=== PATIENT | female | born 1950 | race Caucasian/White ===

== ENCOUNTER 2023-01-30 14:06 | Observation (INO) | payer MEDICARE ==
[~2023-01-30] VITALS: Ht 165.1 cm; Wt 57.0 kg
[2023-01-30] MEDS ORDERED: LEVOTHYROXINE125 MC9 PO (14:31)
[2023-01-30 14:39] LABS: BASOPHILS ABSOLUTE AUTO 0.02 K/mm3 (0.00-0.23); BASOPHILS PERCENT AUTO 0 % (0-2); EOSINOPHILS PERCENT AUTO 0 % (0-6); Hematocrit 37.8 % (33.0-51.0); Hemoglobin 12.4 g/dL (11.5-16.0); IMMATURE GRAN ABSOLUTE AUTO 0.05 K/mm3 (0.00-0.10); IMMATURE GRAN PERCENT AUTO 0 % (0-1); LYMPHOCYTES ABSOLUTE AUTO 3.67 K/mm3 (0.84-5.20); LYMPHOCYTES PERCENT AUTO 30 % (21-46); MONOCYTES ABSOLUTE AUTO 0.32 K/mm3 (0.16-1.47); MONOCYTES PERCENT AUTO 3 % (4-13); Mean Corpuscular HGB Conc 32.8 g/dL (31.5-36.5); Mean Corpuscular Volume 92 fL (80-100); Mean Platelet Volume 10.2 fL (9.1-12.4); NEUTROPHILS ABSOLUTE AUTO 8.03 K/mm3 (1.96-9.15); NEUTROPHILS PERCENT AUTO 66 % (41-73); Platelet Count 372 K/mm3 (150-400); RDW Coefficient Variation 14.2 % (11.7-14.2); RDW Standard Deviation 47.9 fL (35.1-46.3); Red Blood Cell Count 4.13 M/mm3 (3.80-5.20); White Blood Cell Count 12.09 K/mm3 (4.00-11.30)
[2023-01-30 15:19] LABS: Albumin, Blood 4.1 g/dL (3.4-5.0); Albumin/Globulin Ratio 1.1 (0.8-1.8); Bilirubin, Total 0.3 mg/dL (0.1-1.0); Bun/Creatinine Ratio 22.1 (12.0-20.0); Calcium, Blood 9.4 mg/dL (8.5-10.1); Creatinine, Blood 0.68 mg/dL (0.40-1.00); Globulin, Blood 3.9 g/dL (2.2-4.0); Potassium, Blood 3.6 mmol/L (3.5-5.5); Thyroid Stimulating Hormone 6.35 uIU/mL (0.360-4.800)
[2023-01-30 17:01] LABS: Source, Urine Voided
[2023-01-30 17:07] LABS: Appearance, Urine Cloudy (Clear); Bilirubin, Urine Neg (Neg); Blood, Urine 1+ (Neg); Color, Urine Yellow (P-Yellow); Glucose Qualitative, Urine Neg (Neg); Ketones, Urine 2+ (Neg); Leukocyte Esterase, Urine 1+ (Neg); Nitrite, Urine Neg (Neg); Protein, Urine 1+ (Neg); Urobilinogen, Urine NORM (Normal)
[2023-01-30 17:19] LABS: Bacteria Many /hpf; Squamous Epithelial Cells Few /hpf (Few)
[2023-01-30] MEDS ORDERED: ONDA4ODT MM (19:33)
[2023-01-30] MEDS ORDERED: CEPH500 PO (19:33)
[2023-01-30 20:31] LABS: Free Thyroxine 1.12 ng/dL (0.70-1.60)
[2023-01-30 21:46] VITALS: BP 164/86
--- NOTE | 2023-01-31 04:18 | NUR ---
SHIFT SUMMARY PATIENT ARRIVED TO UNIT FROM ED AT 21:50. A/Ox4, ORIENTED TO UNIT, ROOM AND CALL LIGHT USE. C/O ONGOING NAUSEA x4 DAYS AFTER RECEIVING COVID 19 VACCINE. STATES HAS BEEN FEELING WEAK/FATIGUED EVER SINCE. DENIES ANY PAIN. REQUIRES 1 ASSIST WITH TRANSFERS TO [facility] DUE TO GENERALIZED WEAKNESS, POOR BALANCE. NO ACUTE CHANGES OVERNIGHT. BED LOCKED AND IN LOWEST POSITION, CALL LIGHT WITHIN REACH.
[2023-01-31 05:04] LABS: BASOPHILS ABSOLUTE AUTO 0.02 K/mm3 (0.00-0.23); BASOPHILS PERCENT AUTO 0 % (0-2); EOSINOPHILS PERCENT AUTO 0 % (0-6); Hemoglobin 11.4 g/dL (11.5-16.0); IMMATURE GRAN ABSOLUTE AUTO 0.05 K/mm3 (0.00-0.10); IMMATURE GRAN PERCENT AUTO 0 % (0-1); LYMPHOCYTES ABSOLUTE AUTO 4.63 K/mm3 (0.84-5.20); LYMPHOCYTES PERCENT AUTO 31 % (21-46); MONOCYTES ABSOLUTE AUTO 1.03 K/mm3 (0.16-1.47); MONOCYTES PERCENT AUTO 7 % (4-13); Mean Corpuscular HGB 30.6 pg (26.0-34.0); Mean Corpuscular HGB Conc 33.5 g/dL (31.5-36.5); Mean Corpuscular Volume 91 fL (80-100); Mean Platelet Volume 9.9 fL (9.1-12.4); NEUTROPHILS ABSOLUTE AUTO 9.33 K/mm3 (1.96-9.15); NEUTROPHILS PERCENT AUTO 62 % (41-73); Platelet Count 368 K/mm3 (150-400); RDW Standard Deviation 46.9 fL (35.1-46.3); Red Blood Cell Count 3.73 M/mm3 (3.80-5.20); White Blood Cell Count 15.06 K/mm3 (4.00-11.30)
[2023-01-31 05:26] LABS: Albumin, Blood 3.6 g/dL (3.4-5.0); Albumin/Globulin Ratio 1.1 (0.8-1.8); Bilirubin, Total 0.3 mg/dL (0.1-1.0); Bun/Creatinine Ratio 24.1 (12.0-20.0); Calcium, Blood 8.2 mg/dL (8.5-10.1); Creatinine, Blood 0.71 mg/dL (0.40-1.00); Globulin, Blood 3.4 g/dL (2.2-4.0); Potassium, Blood 3.4 mmol/L (3.5-5.5)
[2023-01-31 07:19] VITALS: BP 129/88
[2023-01-31] MEDS ORDERED: CEPH500 PO (11:28)
--- NOTE | 2023-01-31 12:24 | NUR ---
DC HOME WRITTEN & VERBAL DC INSTRUCTIONS GIVEN TO PT WITH SPOUSE AT BEDSIDE, BOTH VERBALIZED GOOD UNDERSTANDING. ALL CONCERNS & QUESTIONS ADDRESSED. PIV DC'D WITH CATH TIP INTACT, NO REDNESS OR SWELLING NOTED. NEW MED SCRIPTS FAXED TO [facility] PER PT REQUEST. PT TO PV VIA W/C WITH ALL PERSONAL BELONGINGS.
== END 2023-01-31 12:25 | disposition home or self-care (01) ==
LOC: ER 14:06 → MEDS 14:07 → ENPENDDIS 01-31 10:55 → MEDS 01-31 12:25
PROVIDERS: Emergency Medicine; ADMIT Internal Medicine
DX: N39.0 Urinary tract infection, site not specified (principal); E03.9 Hypothyroidism, unspecified; E86.0 Dehydration; E46 Unspecified protein-calorie malnutrition; Z88.2 Allergy status to sulfonamides; Z88.8 Allergy status to other drugs, medicaments and biological substances
CPT/HCPCS: 36415; 80053; 81001; 83690; 83880; 84439; 84443; 85025; 96361; 96372-59; 96374; 96375; 96376; 97165; 97530; 99285-25; A9270; G0378; J0696; J0780; J1650; J2405; J7030

== ENCOUNTER → 2024-01-28 | Outpatient (CLI) | payer MEDICARE, OTHER ==
[~2024-01-28] MED LIST: CEPH500 PO; LEVOTHYROXINE125 MC9 PO; ONDA4ODT MM
== END | disposition home or self-care (01) ==
LOC: LAB 18:53 → LAB SHORT 18:53
DX: R30.0 Dysuria (principal)
CPT/HCPCS: 87077; 87086; 87186

== ENCOUNTER → 2024-02-21 | Outpatient (CLI) | payer MEDICARE, OTHER ==
[2024-02-21 19:12] LABS: Hematocrit 36.8 % (33.0-51.0); Hemoglobin 12.1 g/dL (11.5-16.0); Mean Corpuscular HGB 30.6 pg (26.0-34.0); Mean Corpuscular HGB Conc 32.9 g/dL (31.5-36.5); Mean Corpuscular Volume 93 fL (80-100); Mean Platelet Volume 10.7 fL (9.1-12.4); Platelet Count 321 K/mm3 (150-400); RDW Standard Deviation 47.9 fL (35.1-46.3); Red Blood Cell Count 3.95 M/mm3 (3.80-5.20); White Blood Cell Count 10.54 K/mm3 (4.00-11.30)
[2024-02-21 20:01] LABS: BASOPHILS PERCENT MAN 0 % (0-2); EOSINOPHILS PERCENT MAN 1 % (0-6); MONOCYTES ABSOLUTE MAN 0.63 K/mm3 (0.16-1.47); MONOCYTES PERCENT MAN 6 % (4-13); NEUTROPHILS ABSOLUTE MAN 3.79 K/mm3 (1.96-9.15); SEG NEUTROPHILS PERCENT MAN 36 % (41-73); TOTAL CELLS COUNTED 100
[2024-02-21 20:03] LABS: LYMPHOCYTES PERCENT MAN 57 % (21-46)
== END | disposition home or self-care (01) ==
LOC: LAB 17:13 → LAB SHORT 17:13
PROVIDERS: Internal Medicine Hematology & Oncology
DX: E61.1 Iron deficiency (principal)
CPT/HCPCS: 85025

== ENCOUNTER 2024-05-12 14:30 | Emergency (ER) | payer MEDICARE, OTHER ==
[~2024-05-12] VITALS: Ht 167.6 cm; Wt 62.1 kg
[2024-05-12 15:21] VITALS: BP 140/119
[2024-05-12] MEDS ORDERED: OxyCODONE 5 mg/Acetamin 325 mg TABLET PO ONE (17:10)
[2024-05-12] MEDS ORDERED: RX Prepack 6 Tabs Oxycodone 5mg UD ONE (18:20)
== END 2024-05-12 18:30 | disposition home or self-care (01) ==
LOC: ER 14:30
DX: S52.612A Displaced fracture of left ulna styloid process, initial encounter for closed fracture (principal); S52.502A Unspecified fracture of the lower end of left radius, initial encounter for closed fracture; E03.9 Hypothyroidism, unspecified; W18.30XA Fall on same level, unspecified, initial encounter; Z79.899 Other long term (current) drug therapy; Z88.2 Allergy status to sulfonamides; Z88.7 Allergy status to serum and vaccine; Z88.8 Allergy status to other drugs, medicaments and biological substances
CPT/HCPCS: 25605; 73100; 73110; 99283-25; A9270

== ENCOUNTER → 2024-06-03 | Outpatient (CLI) | payer MEDICARE, OTHER | END | disposition home or self-care (01) | LOC: LAB SHORT 17:11 → LAB 17:11 | DX: R30.0 Dysuria (principal) | CPT/HCPCS: 87077; 87086; 87186 ==